=== PATIENT | female | born 1975 | race Caucasian/White ===

== ENCOUNTER 2016-08-04 17:17 | Emergency (ER) | payer BC ==
--- NOTE | ~2016-08-04 | ER ---
PATIENT'S NAME: DOMINIQUE TORRES [facility] AGE: 41 Y [address] ROOM: [place] [address] LOCATION: [facility] ADMIT DATE: 08/04/2016 ER/Outpatient Report DISCHARGE DATE: 08/04/2016 FAMILY PHYSICIAN: Huey Sanchez MD ATTENDING PHYSICIAN: Brandon Perry SEEN AT: 1755 hours. CHIEF COMPLAINT: Right arm pain. HISTORY OF PRESENT ILLNESS: The patient is a 41-year-old female, who awoke early this morning with right arm pain. Pain has progressed throughout the day. She denies any injuries or unusual activity with the arm. Pain is described as achy heaviness. ALLERGIES: SHE IS ALLERGIC TO BIAXIN AND LEVAQUIN. CURRENT MEDICATIONS: 1. Hydrochlorothiazide. 2. Meloxicam. 3. Wellbutrin. 4. Topamax. 5. Claritin. 6. Protonix. MEDICAL HISTORY: Hypertension, some depression, and reflux. SURGERIES: Partial hysterectomy, this was approximately 8 weeks ago. SOCIAL HISTORY: Nonsmoker. Alcohol rarely. FAMILY HISTORY: Father had DVTs in his mid 40s. REVIEW OF SYSTEMS: GENERAL: No recent illnesses, fevers, or chills. HEAD/EENT: No complaints of a headache or sore throat. RESPIRATORY: Denies any shortness of breath or pleuritic pain. CARDIOVASCULAR: Denies any palpitations or chest heaviness. PATIENT'S NAME: DOMINIQUE TORRES [facility] AGE: 41 Y [address] ROOM: [place] [address] LOCATION: [facility] ADMIT DATE: 08/04/2016 ER/Outpatient Report DISCHARGE DATE: 08/04/2016 FAMILY PHYSICIAN: Huey Sanchez MD ATTENDING PHYSICIAN: Brandon Perry MUSCULOSKELETAL: Denies any pain to her extremities. Does complain of pain in the right arm, mostly in her forearm. Denies any swelling, redness, cuts, or injuries. PHYSICAL EXAMINATION: VITAL SIGNS: Her blood pressure was 140/73, her respiratory rate 16, pulse 73, and her O2 saturations 98%. GENERAL APPEARANCE: White female. She is alert and oriented. HEAD/EENT: Sclerae were clear. Buccal membranes moist. LUNGS: Peripherally were clear throughout. HEART: Rhythm appeared regular. Tones distant. EXTREMITIES: Right arm did not appear swollen, but she had tenderness in the forearm. Radial pulse was brisk. The hand/arm was warm. Lower extremities: No calf tenderness. NEURO: Strength appeared maybe a little decreased in her right hand. She has had some numbness along the fifth and fourth fingers. LABORATORY DATA AND X-RAYS: Her CBC was unremarkable. Her venous Doppler did show clots in the brachial vein. ASSESSMENT: Brachial vein deep vein thrombosis, right arm. PLAN: I did talk to Dr. Sanchez, the patient's doctor, his recommendation was outpatient with Xarelto 15 mg b.i.d. for 21 days. The patient is to limit her activity with her right arm. She is to call Dr. Sanchez on Friday. Handout given on deep vein thrombosis of the upper extremities. Recommend if she develops any shortness of breath or pleuritic chest pain, to return to the emergency room. The patient verbalized understanding of her findings and recommendations, questions answered. SULTANA GREER FOR MD AMINA PARKER/trever /[id number] d: 08/04/16 2152 t: 08/19/16 0650, OUTPATIENT REPORT
--- NOTE | ~2016-08-04 | ENPV ---
Vascular Upper Extremities Veins Procedure Demographics Patient Name DOMINIQUE TORRES Date of Study 08/04/2016 Patient Number [id number] Gender Female Date of 1975 Age 41 Visit Number [id number] Height Accession Number [id number] Weight Room Number BSA BMI Referring Laura Arauz Ilene Cassie Arauz Physician Orlando Taylor MD Physician Physician Ordering Physician Orlando Taylor MD Croze Cutter Duty Officer Rosy Aman RDCS, RVT Conclusions Summary There is acute deep vein thrombosis in the right brachial vein to the forearm. The internal jugular, subclavian, axillary, as well as the basilic and cephalic veins appear patent. Procedure Type of Study: Veins:Upper Extremities Veins, Upper Extremity Right. Indications for Study:Arm pain. Appropriate Use Criteria:7 Patient Status:STAT. Study Location:ER. Technical Quality:Limited visualization due to body habitus. Risk Factors - The patient's risk factor(s) include: obesity. Velocities are measured in cm/s ; Diameters are measured in cm Right UE Vein Measurements 2D and Doppler Measurements +---------+ + + + + + !Location !Visualized !Compressibility !Thrombosis !Signal !Reflux ! +---------+ + + + + + !IJV !Yes !Yes !None !Phasic ! ! +---------+ + + + + + !SCV !Yes !Yes !None !Phasic ! ! +---------+ + + + + + !Axillary !Yes !Yes !None !Continuous ! ! +---------+ + + + + + !Brachial !Yes !No !Acute !Absent ! ! +---------+ + + + + + !Radial !Yes !Partial !Acute !Continuous ! ! +---------+ + + + + + !Ulnar !Yes !Partial !Acute !Continuous ! ! +---------+ + + + + + !Basilic !Yes !Yes !None !Continuous ! ! +---------+ + + + + + !Cephalic !Yes !Yes !None !Phasic ! ! +---------+ + + + + + Left UE Vein Measurements 2D and Doppler Measurements + + + + +--------+ + !Location !Visualized !Compressibility !Thrombosis !Signal !Reflux ! + + + + +--------+ + !IJV !Yes !Yes !None !Phasic ! ! + + + + +--------+ + Impressions Right Impression DVT at the brachial to the for arm with partial DVT in the radial and ulnar veins. Signature dtt: Ravindra Taylor dtd: 08/04/16 1848
[2016-08-04 18:52] LABS: BASOPHIL % 0.3 %; EOSINOPHIL # 0.2 K/uL (0.0-0.5); EOSINOPHIL % 1.3 %; HEMATOCRIT 37.6 % (33.0-46.0); HEMOGLOBIN 12.2 g/dL (10.0-15.0); IMMATURE GRANULOCYTE % 0.3 %; LYMPHOCYTE % 34.1 %; MCHC 32.4 gm/dL (32.0-36.5); MONOCYTE # 0.7 K/uL (0.0-1.0); MONOCYTE % 5.9 %; MPV 10.8 fl (9.4-12.4); NEUTROPHIL # (ANC) 6.8 K/uL (1.8-7.8); NEUTROPHIL % 58.1 %; NRBC % 0 /100WBC (0-0.00); PLATELET COUNT 226 K/uL (150-450); RDW-CV 13.9 % (11.9-14.6); WBC 11.7 K/uL (4.0-11.0)
== END 2016-08-04 19:50 | disposition disaster alternative care site (69) ==
LOC: GMED 17:17
PROVIDERS: Emergency Medicine
DX: I82.621 Acute embolism and thrombosis of deep veins of right upper extremity (principal); I10 Essential (primary) hypertension; F32.9 Major depressive disorder, single episode, unspecified; K21.9 Gastro-esophageal reflux disease without esophagitis; Z79.899 Other long term (current) drug therapy; Z88.1 Allergy status to other antibiotic agents; Z90.710 Acquired absence of both cervix and uterus